=== PATIENT | female | born 2000 | race Caucasian/White ===

== ENCOUNTER 2024-06-25 09:10 | Outpatient (NON) | payer OTHER, SELFPAY | END 2024-06-25 09:11 | disposition home or self-care (01) | LOC: ANHLAB 06-26 09:12 | PROVIDERS: PCP Nurse Practitioner Family; Visit Provider Internal Medicine Gastroenterology | DX: K90.0 Celiac disease (principal); K29.80 Duodenitis without bleeding | CPT/HCPCS: 88305 ==

== ENCOUNTER 2024-07-09 06:58 | Outpatient (NON) | payer OTHER, SELFPAY | END 2024-07-09 06:59 | disposition home or self-care (01) | LOC: ANHLAB 06:58 | PROVIDERS: PCP Nurse Practitioner Family; Visit Provider Nurse Practitioner Family | DX: R19.7 Diarrhea, unspecified (principal) | CPT/HCPCS: 83993 ==